=== PATIENT | female | born 1965 | race Asian ===

== ENCOUNTER 2018-08-15 12:15 | Day surgery (SDC) | payer OTHER ==
[~2018-08-15 12:15] MED LIST: CEFAZOLIN 1 GM INJ
[2018-08-15] MEDS ORDERED: FENTAnyl 50 MCG/ML VIAL (12:25)
[2018-08-15] MEDS ORDERED: LIDOCAINE 2% (SDV) 5 ML INJ (12:26)
[2018-08-15] MEDS ORDERED: MIDAZOLAM 1 MG/ML 2 ML INJ (12:26)
[2018-08-15] MEDS ORDERED: PROPOFOL 20 ML (12:26)
[2018-08-15] MEDS: BUPIVACAINE 0.5% (SDV) 30 ML INJ (14:19)
[2018-08-15] MEDS: LIDOCAINE 2% (MDV) 20 ML INJ (14:19)
[2018-08-15] MEDS: POLYMYXIN/BACITRACIN 1L IRRIG (14:20)
[2018-08-15] MEDS ORDERED: LABETALOL HCL 20MG INJ IV (14:30)
[2018-08-15] MEDS ORDERED: KETOROLAC 30 MG INJ IV (14:30)
[2018-08-15] MEDS ORDERED: HYDROmorphONE 1 MG/5 ML IV SYRINGE IV ×3 (14:30)
[2018-08-15] MEDS ORDERED: MEPERIDINE 25 MG INJ IV (14:30)
[2018-08-15] MEDS ORDERED: DIPHENHYDRAMINE 50 MG INJ IV (14:30)
[2018-08-15] MEDS ORDERED: FENTAnyl 50 MCG/ML VIAL IV ×2 (14:30)
[2018-08-15] MEDS ORDERED: hydrALAzine 20 MG INJ IV (14:30)
[2018-08-15] MEDS ORDERED: ONDANSETRON 4 MG INJ IV (14:30)
[2018-08-15] MEDS ORDERED: IPRATROPIUM (NEB) 0.5 MG/2.5 ML AMP HHN (14:30)
== END 2018-08-15 16:55 | disposition home or self-care (01) ==
LOC: SDS 12:15
DX: M25.774 Osteophyte, right foot (principal); E78.5 Hyperlipidemia, unspecified
CPT/HCPCS: 28108; 84703